=== PATIENT | male | born 1955 | race Caucasian/White ===

== ENCOUNTER → 2016-05-02 | Outpatient (CLI) | payer BC ==
--- NOTE | 2016-05-02 11:36 | PN ---
DATE OF SERVICE: 05/02/2016 A 60-year-old gentleman has been followed in the sleep center for treatment of obstructive sleep apnea-hypopnea syndrome. Recently patient received new CPAP unit. He continued to use equipment every night for the whole night. [place] Sleepiness Scale is normal at 4. Patient reported that sometimes he has whistling sound from the mask during breathing. But today, he claims his ( ) port in his mask and according to him probably whistling is disappearing. I checked his CPAP unit. CPAP pressure of 12 cm of water. Patient using equipment 28 out of 30 nights for more than 4 hours, great compliance. Average usage 7 hours. A leak up to 35 L per minute, which is borderline. Apnea-hypopnea index 3.0, which is in normal range. MEDICATIONS: Lovastatin and eye drops. During physical exam, the patient is in no distress. VITAL SIGNS: BP 137/79, HR 70, RR 16. Weight 250. Temperature 97.5. Oxygen saturation at room air 97%. HEENT: PERRLA, EOMI, Evaluation of the oropharynx showed tongue protrudes midline. NECK: Supple. No JVD, Thyroid is not palpable. LUNGS: Clear to percussion and to auscultation. Good air exchange. No wheezing or rhonchi. HEART: S1, S2 regular. No murmurs, gallops, or rubs. ABDOMEN: Soft and nontender. Bowel sounds are present. No organomegaly appreciated. SPRAY UNIT FEEDER: Awake, alert, and oriented x3. Cranial nerves 2 to 7 intact. There is no fasciculation or atrophy noted. No focal deficits observed. IMPRESSION: 1. Obstructive sleep apnea/hypopnea syndrome on control with CPAP at 12 cm of water. Patient demonstrated great compliance with treatment benefiting from treatment. 2. Obesity. Weight is about the same as about 6 months ago. 3. Hyperlipidemia. 4. Allergy. 5. Acid reflux. 6. Right knee problems. 7. High eye pressure. PLAN: 1. Patient will continue to use his CPAP equipment every night for the whole night. 2. Prescription for all necessary CPAP supplies. 3. We will consider to change mask to different style if necessary. Patient is using a full face mask. 4. Losing weight. 5. No driving if feeling any sleepiness. 6. Follow -up visit in one year or earlier if patient has any problems. Thank you very much for allowing me to participate in the management of your patient. Sincerely, Aldair Cheung MD, PhD, FAASM Diplomat of [place] Board of [employer] Medicine, Sleep Medicine Board by [place] [employer] Specialities [place] Board of Internal Medicine Electronics Warfare Technician of [facility] [place]
== END | disposition home or self-care (01) ==
LOC: SLEEP 10:05
PROVIDERS: ATTEND Internal Medicine
DX: G47.33 Obstructive sleep apnea (adult) (pediatric) (principal); E66.9 Obesity, unspecified; E78.5 Hyperlipidemia, unspecified; H57.9 Unspecified disorder of eye and adnexa; Z79.899 Other long term (current) drug therapy; Z99.89 Dependence on other enabling machines and devices

== ENCOUNTER 2017-03-18 08:47 | Emergency (ER) | payer BC ==
[2017-03-18] MEDS ORDERED: DIPH,PERTUS(ACELL)TETVAC-LF 0.5 ML VIAL IM ONE (09:15)
--- NOTE | 2017-03-18 09:18 | ED ---
General Adult HPI - General Chief complaint: Fall Stated complaint: Laceration around eye Time Seen by Provider: 03/18/17 09:08 Source: patient, RN notes reviewed, old records reviewed Mode of arrival: ambulatory Limitations: no limitations - History of Present Illness Initial comments: 61-year-old male presents with left eye laceration status post fall. Patient states he was sitting on the floor, stood and fell forward hitting his head and left eye on the edge of a coffee table. He had a laceration which was bleeding. Patient states this occurred at approximately 11 PM. He waited to be evaluated by his physician this morning secondary to high emergency department to Dr. Drake. Patient's primary care physician sent him in for further evaluation. There was continued bleeding, this has resolved. Patient is on certain of his last tetanus immunization. He is not currently on any blood thinners. He denies loss of consciousness with the fall. Denies any vision changes. Past medical history of hypercholesterolemia. Patient denies any other injuries. Denies current headache. No nausea vomiting. - Related Data Home Medications Medication Instructions Recorded Confirmed Brimonidine Tartrate/Timolol 1 drop BOTH EYES Q12HR 08/16/14 03/18/17 [Combigan 0.2%/0.5% Ophth Soln] Atorvastatin [Lipitor] 20 mg PO HS 03/18/17 03/18/17 Multivitamins, Thera [Multivitamin 1 tab PO DAILY 03/18/17 03/18/17 (formulary)] Turmeric Root Extract [Turmeric] 500 mg PO DAILY 03/18/17 03/18/17 Previous Rx's Medication Instructions Recorded Erythromycin Ophth Oint [Romycin 1 applic LEFT EYE QID #3.5 gm 03/18/17 Ophth Oint] Allergies Allergy/AdvReac Type Severity Reaction Status Date / Time hydrocodone bitartrate Allergy Nausea & Verified 03/18/17 09:06 [From Vicodin] Vomiting naproxen sodium [From Aleve] Allergy Rash/Hives, Verified 03/18/17 09:06 vomiting Review of Systems ROS Statement: Those systems with pertinent positive or pertinent negative responses have been documented in the HPI. ROS Other: All systems not noted in ROS Statement are negative. Past Medical History Past Medical History: Asthma, GERD/Reflux, Hyperlipidemia, Sleep Apnea/CPAP/ BIPAP Additional Past Medical History / Comment(s): glaucoma, frequent diarreha History of Any Multi-Drug Resistant Organisms: None Reported Past Surgical History: Orthopedic Surgery, Tonsillectomy Additional Past Surgical History / Comment(s): arthroscopy rt knee, deviated septum/rhinoplasty Past Anesthesia/Blood Transfusion Reactions: No Reported Reaction Past Psychological History: No Psychological Hx Reported Smoking Status: Former smoker - Past Family History Father Family Medical History: Cancer Additional Family Medical History / Comment(s): MALIGNANT MELANOMA Brother(s) Family Medical History: Cancer Additional Family Medical History / Comment(s): PANCREATIC Sister(s) Family Medical History: Cancer Additional Family Medical History / Comment(s): HODGKINS, LUNG General Exam Limitations: no limitations General appearance: alert, in no apparent distress Head exam: Present: atraumatic, normocephalic Eye exam: Present: PERRL, EOMI, periorbital swelling, other (Periorbital ecchymosis on the left, no bony tenderness, no photophobia) ENT exam: Present: normal exam, normal oropharynx Neck exam: Present: normal inspection. Absent: tenderness, meningismus Respiratory exam: Present: normal lung sounds bilaterally. Absent: respiratory distress Cardiovascular Exam: Present: regular rate, normal rhythm GI/Abdominal exam: Present: soft. Absent: distended, tenderness, guarding Extremities exam: Present: normal inspection, full ROM, normal capillary refill. Absent: pedal edema Neurological exam: Present: alert, oriented X3, CN II-XII intact, normal gait. Absent: motor sensory deficit Psychiatric exam: Present: normal affect, normal mood Skin exam: Present: warm, dry, intact. Absent: cyanosis, diaphoretic Course Vital Signs 03/18/17 08:55 Temperature 99.2 F Pulse Rate 100 Respiratory 18 Rate Blood Pressure 133/98 O2 Sat by Pulse 97 Oximetry Medical Decision Making - Medical Decision Making 61-year-old male with head injury and left eyelid laceration. Laceration is approximately 9 hours old. There is no bleeding. It is in good alignment, horizontal across the upper related, no involvement of the lid margin. No need for repair. There is no photophobia in that eye, no signs of traumatic iritis. No globe injury. 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 Wound is cleansed and antibiotic ointment applied. Patient will continue to apply antibiotic ointment, he is also prescribed erythromycin. He will follow- up with his primary care physician. Disposition Clinical Impression: Eyelid laceration, Closed head injury Disposition: HOME SELF-CARE Condition: Good Instructions: Facial Laceration (ED) Prescriptions: Erythromycin Ophth Oint [Romycin Ophth Oint] 1 applic LEFT EYE QID #3.5 gm Referrals: Modesto Ramirez DO [Primary Care Provider] - 1-2 days Time of Disposition: 10:07
--- NOTE | 2017-03-18 09:53 | CT ---
EXAMINATION TYPE: CT brain josiah cota con DATE OF EXAM: 03/18/2017 COMPARISON: NONE HISTORY: Left orbital injury with laceration and visual disturbance after fall. Head and neck pain. CT DLP: 1800.8 mGycm. Automated Exposure Control for Dose Reduction was Utilized. TECHNIQUE: CT scan of the head and cervical spine are performed without contrast. FINDINGS: There is no acute intracranial hemorrhage, mass effect, or midline shift identified. The ventricles and sulci are symmetrically prominent compatible with age-related volume loss. There is m oderate ethmoid mucosal thickening left maxillary sinus mucosal retention cyst measuring 1.8 cm. Mild left maxillary mucosal thickening and sphenoid mucosal thickening are also seen. Frontal sinuses are mildly hypoplastic but well aerated. Mastoid air cells and right maxillary sinus are well aerated. C alvarium is intact. Right frontal bone sclerotic lesion measuring 3 mm likely represents a small oste zaid on bone island. There is preseptal left periorbital soft tissue swelling. Globes remain rounded and lenses are in dolores ce. No post septal soft tissue swelling. Extraocular muscles are symmetric. Cervical spine is visualized in its entirety from C1 through upper thoracic levels and demonstrates s atisfactory alignment without evidence of acute fracture or dislocation. Prevertebral soft tissue ap pears within normal limits. Multilevel moderate degenerative changes of the cervical spine are demons trated as anterior osteophytes, endplate sclerosis, facet arthropathy, uncovertebral hypertrophy and intervertebral disc space narrowing. Small posterior disc ossify complexes are also seen at C5-C6 and C6-C7 creating mild spinal canal stenosis at these levels. The C1-C2 articulation is unremarkable. There is straightening of the usual cervical lordosis. A 4 mm hypoattenuated right thyroid nodule is noted. Left apical pleural parenchymal scarring is grea ter than on the right. IMPRESSION: 1. There is no acute fracture or dislocation evident in the cervical spine. 2. No acute intracranial hemorrhage, mass effect, or midline shift is seen. 3. Left preseptal periorbital soft tissue swelling. No evidence of globe rupture, lens displacement o r orbital fracture. 4. Moderate multilevel degenerative disc disease resulting in mild spinal canal stenosis at C5-C6 and C6-C7.
[2017-03-18 10:22] VITALS: BP 140/80; PULSE 70; RESP 16; TEMP 98
== END 2017-03-18 10:20 | disposition home or self-care (01) ==
LOC: EC 08:47
DX: S01.112A Laceration without foreign body of left eyelid and periocular area, initial encounter (principal); E78.5 Hyperlipidemia, unspecified; G47.30 Sleep apnea, unspecified; Z99.89 Dependence on other enabling machines and devices; Z86.69 Personal history of other diseases of the nervous system and sense organs; Z87.891 Personal history of nicotine dependence; Z79.899 Other long term (current) drug therapy; Z88.5 Allergy status to narcotic agent; Z88.6 Allergy status to analgesic agent; Z23 Encounter for immunization; W01.190A Fall on same level from slipping, tripping and stumbling with subsequent striking against furniture, initial encounter
CPT/HCPCS: 70450; 72125; 90471; 90715; 99284

== ENCOUNTER → 2017-05-08 | Outpatient (CLI) | payer BC ==
--- NOTE | 2017-05-08 16:55 | PN ---
PROGRESS NOTE DATE OF SERVICE: 05/08/2017 This patient is a 61-year-old gentleman who has been followed in the sleep center for treatment of obstructive sleep apnea-hypopnea syndrome. Last time I saw the patient was one year ago. For this year, patient continued to use his CPAP equipment every night without significant problems. [place] Sleepiness Scale today is 4. He was told once about episodes of snoring; otherwise everything is normal. I checked his CPAP unit. CPAP pressure is 12 cm of water. Usage is 100% of the time for more than 4 hours. Average usage 8.1 hours. Leak is 19 L/minute, which is acceptable. Apnea-hypopnea index for the last month is 5.7, which is within acceptable range. MEDICATIONS: 1. Lovastatin. 2. Eye drops. PHYSICAL EXAMINATION: GENERAL A pleasant gentleman without distress. VITAL SIGNS: BP 138/79, HR 70, RR 16, height 5 feet 10 inches, weight 264, BMI 37.8, temperature 98.6, oxygen saturation at room air 96%. HEENT: PERRLA, EOMI. Evaluation of oropharynx showed tongue protrudes midline; extremely low position of soft palate. NECK: Supple. No JVD. Thyroid is not palpable. LUNGS: Clear to percussion and to auscultation. Good air exchange. No wheezing or rhonchi. HEART: S1, S2 regular. No murmurs, gallops or rubs. ABDOMEN: Obese. EXTREMITIES : No clubbing or cyanosis. CORE MACHINE TENDER: Awake, alert, and oriented X3. Cranial nerves 2 to 7 intact. There is no fasciculation or atrophy. noted. No focal deficits observed. IMPRESSION: 1. Obstructive sleep apnea-hypopnea syndrome. Patient demonstrated 100% compliance with treatment, benefitting from treatment. 2. Obesity. Patient's weight increased by about 14 pounds since previous visit. At present his weight is 264 pounds. 3. Hyperlipidemia. 4. History of allergies. 5. History of acid reflux. 6. Right knee problem. 7. Increased eye pressure. PLAN: 1. Continue treatment with CPAP every night for the whole night. 2. Losing weight. 3. Sleep hygiene with regular time in bed for at least 8 hours. 4. No driving if feeling any sleepiness. 5. Prescription for all necessary CPAP supplies, including mask, tube, filters. 6. Follow-up visit in one year or earlier if patient has any problems. Thank you very much for allowing me to participate in the management of your patient. Sincerely, Aldair Cheung MD, PhD, FAASM Diplomat of [place] Board of Medical Specialties [place] Board of Internal Medicine Precipitate Washer of [facility] [place] MMODL / EV: [id number] /
== END | disposition home or self-care (01) ==
LOC: SLEEP 13:42
PROVIDERS: ATTEND Internal Medicine
DX: G47.33 Obstructive sleep apnea (adult) (pediatric) (principal); E66.9 Obesity, unspecified; E78.5 Hyperlipidemia, unspecified; M25.861 Other specified joint disorders, right knee; H57.8 Other specified disorders of eye and adnexa; Z87.19 Personal history of other diseases of the digestive system; Z91.09 Other allergy status, other than to drugs and biological substances; Z79.899 Other long term (current) drug therapy; Z99.89 Dependence on other enabling machines and devices

== ENCOUNTER → 2018-05-14 | Outpatient (CLI) | payer BC ==
--- NOTE | 2018-05-14 15:46 | PN ---
PROGRESS NOTE DATE OF SERVICE: 05/14/2018 This patient is a 62-year-old gentleman who has been followed in the sleep center for treatment of obstructive sleep apnea-hypopnea syndrome. The patient successfully continues to use his CPAP equipment. Recently he received his new CPAP unit. Today is his first visit since he received his new CPAP machine. [place] Sleepiness Scale today is 2. I checked his CPAP unit. Usage is 100% of the time for more than 4 hours. Average usage is 8.2 hours. CPAP pressure is 12 cm of water. Leak is 30 L/minute which is borderline. Apnea-hypopnea index is only 2.7, which is totally normal. His medications are lovastatin eyedrops for increased eye pressure. PHYSICAL EXAMINATION: GENERAL: A pleasant patient in no distress. VITAL SIGNS: BP 144/76, HR 74, RR 16, height 5 feet 10 inches, weight 254 pounds. Body mass index 36, temperature 98.6, oxygen saturation at room air 94%. HEENT: PERRLA, EOMI. Evaluation of oropharynx showed tongue protrudes midline. Extremely low position of soft palate. Mallampati IV. NECK: Supple. No JVD. Thyroid is not palpable. LUNGS: Clear to percussion and to auscultation. Good air exchange. No wheezing or rhonchi. HEART: S1, S2 regular. No murmurs, gallops or rubs. ABDOMEN: Obese. EXTREMITIES: No clubbing or cyanosis. LANDSCAPE CREW MEMBER: Awake, alert, and oriented X3. Cranial nerves 2 to 7 intact. There is no fasciculation or atrophy. noted. No focal deficits observed. IMPRESSION: 1. Obstructive sleep apnea-hypopnea syndrome, 100% compliance with treatment. Patient is benefitting from treatment. 2. Obesity. 3. Hyperlipidemia. 4. History of allergies. 5. History of acid reflux. 6. Right knee problems. 7. Increased eye pressure. PLAN: 1. Patient will continue to use CPAP equipment every night. 2. We will maintain all necessary prescriptions for CPAP supplies, including filters, tubes, mask. 3. Losing weight. 4. No driving if feeling any sleepiness. 5. Follow-up visit in one year, or earlier if patient has any problems. Thank you very much for allowing me to participate in the management of your patient. Sincerely, Aldair Cheung MD, PhD, FAASM Diplomat of [place] Board of Medical Specialties [place] Board of Internal Medicine Snow Ranger of [facility] [place] [email or web address] / LINHN: [id number] /
== END ==
LOC: SLEEP 14:20
PROVIDERS: ATTEND Internal Medicine
DX: G47.33 Obstructive sleep apnea (adult) (pediatric) (principal); E66.9 Obesity, unspecified; E78.5 Hyperlipidemia, unspecified; K21.9 Gastro-esophageal reflux disease without esophagitis; T78.40XA Allergy, unspecified, initial encounter; M25.561 Pain in right knee; H40.059 Ocular hypertension, unspecified eye; Z99.89 Dependence on other enabling machines and devices; Z68.36 Body mass index [BMI] 36.0-36.9, adult

== ENCOUNTER → 2019-04-22 | Outpatient (CLI) | payer BC ==
--- NOTE | 2019-04-22 11:26 | SFUN ---
SLEEP CENTER FOLLOW UP NOTE DATE OF SERVICE: 04/22/2019 This is a 63-year-old gentleman has been followed in sleep center for treatment of obstructive sleep apnea-hypopnea syndrome. The patient continued to use CPAP equipment every night for the whole night, but recently started to wake up from sleep while using his CPAP equipment. [place] Sleepiness Scale today is 6. I checked his CPAP unit. CPAP pressure is 12 cm of water. Usage is 29 out of 30 nights for more than 4 hours with average usage 7.6 hours, he showed great compliance. Leak 14 L/minute, which is acceptable. Apnea-hypopnea index for the last month 8.7 for the last night, 11.9, which is definitely above ideal numbers and last year patient apnea- hypopnea index was 2.7. Since last year, patient increased his weight again on around 7 pounds. MEDICATIONS: eyedrops for the increased eye pressure. PHYSICAL EXAMINATION: During physical exam, patient in no distress. VITAL SIGNS: BP 162/87, HR 78, RR 12, height 5 feet 11 inches, weight 261.0, body mass index 36.2, temperature 97.6, oxygen saturation at room air 97%. HEENT: PERRLA, EOMI. Oropharynx extremely low soft palate, Mallampati 4. NECK: Supple, no JVD. Thyroid is not palpable. LUNGS: Clear to percussion and to auscultation. Good air exchange. No wheezing or rhonchi. HEART: S1, S2 regular. No murmurs, gallops, or rubs. ABDOMEN: Obese. EXTREMITIES: No clubbing or cyanosis. CYBER SECURITY ENGINEER: Awake, alert, and oriented X3. Cranial nerves 2 to 7 intact. There is no fasciculation or atrophy. noted. No focal deficits observed. IMPRESSION: 1. Obstructive sleep apnea-hypopnea syndrome. The patient demonstrated 100% compliance with treatment benefitting from treatment, but recently started to wake up from sleep while using his CPAP equipment. 2. Obesity. Patient increased weight around 7 pounds. 3. Hyperlipidemia. 4. History of allergies. 5. History of acid reflux. 6. Right knee problems. 7. Increased eye pressure. PLAN: 1. I will change the regimen in the machine to automatic with a maximum pressure of 15. 2. Follow-up visit in 3 or 4 months to re-evaluate patient quality of sleep. 3. Losing weight. 4. Sleep hygiene with regular time in bed for at least 7-1/2 to 8 hours. 5. No driving if feeling sleepiness. 6. We will maintain all necessary prescriptions for full mask. The patient is Simplus and heated tube and filters. Thank you very much for allowing me to participate in management of your patient. Sincerely, Aldair Cheung MD, PhD, FAASM Diplomat of [place] Board of Medical Specialties [place] Board of Internal Medicine Copyist of [facility] [place] MMODL / IJN: [id number] /
== END | disposition home or self-care (01) ==
LOC: SLEEP 10:28
PROVIDERS: ATTEND Internal Medicine
DX: G47.33 Obstructive sleep apnea (adult) (pediatric) (principal); E66.9 Obesity, unspecified; E78.5 Hyperlipidemia, unspecified; R93.89 Abnormal findings on diagnostic imaging of other specified body structures; Z99.89 Dependence on other enabling machines and devices; Z87.19 Personal history of other diseases of the digestive system; Z91.09 Other allergy status, other than to drugs and biological substances; Z87.39 Personal history of other diseases of the musculoskeletal system and connective tissue; Z79.899 Other long term (current) drug therapy; Z68.36 Body mass index [BMI] 36.0-36.9, adult

== ENCOUNTER → 2019-07-29 | Outpatient (CLI) | payer BC ==
--- NOTE | 2019-07-29 19:31 | SFUN ---
SLEEP CENTER FOLLOW UP NOTE This patient is a 63-year-old gentleman who has been followed in Sleep Center for treatment of obstructive sleep apnea-hypopnea syndrome. The patient continues to use CPAP equipment every night for the whole night. No snoring with the machine. [place] Sleepiness Scale today is 3, which is normal. I checked his CPAP unit; automatic regimen 5-16. Average pressure 15.6, average apnea- hypopnea index for the last month 3.3, usage 30/30 nights for more than 4 hours with average usage 7.1 hours per night. The patient is using an AirFit F20 medium- sized mask. PHYSICAL EXAMINATION: VITAL SIGNS: BP 169/84, HR 72, RR 16, height 5 feet 11 inches, weight 263, temperature 98.0, oxygen saturation at room air 95%. HEENT: PERRLA, EOMI. Evaluation of oropharynx showed tongue protrudes midline. Extremely low position of soft palate. Mallampati IV. NECK: Supple. No JVD. Thyroid is not palpable. LUNGS: Clear to percussion and to auscultation. Good air exchange. No wheezing or rhonchi. HEART: S1, S2 regular. No murmurs, gallops or rubs. ABDOMEN: Obese. EXTREMITIES: No clubbing or cyanosis. SLOT MANAGER: Awake, alert, and oriented X3. Cranial nerves 2 to 7 intact. There is no fasciculation or atrophy. noted. No focal deficits observed. IMPRESSION: 1. Obstructive sleep apnea-hypopnea syndrome. Patient demonstrated great compliance with treatment, benefitting from treatment. 2. Obesity. 3. Hyperlipidemia. 4. History of allergies. 5. History of acid reflux. 6. Right knee problems. 7. Increased eye pressure. PLAN: 1. Prescription was written for CPAP supplies. 2. Losing weight. 3. Sleep hygiene with regular time in bed for at least 7-1/2 hours. 4. No driving if feeling any sleepiness. 5. Follow-up visit in 6 months. Thank you very much for allowing me to participate in the management of your patient. Sincerely, Aldair Cheung MD, PhD, FAASM Diplomat of [place] Board of Medical Specialties [place] Board of Internal Medicine Pole Peeler of [facility] [place] MMODL / IJN: [id number] / [facility]
== END | disposition home or self-care (01) ==
LOC: SLEEP 10:47
PROVIDERS: ATTEND Internal Medicine
DX: G47.33 Obstructive sleep apnea (adult) (pediatric) (principal); E66.9 Obesity, unspecified; E78.5 Hyperlipidemia, unspecified; H57.89 Other specified disorders of eye and adnexa; R93.89 Abnormal findings on diagnostic imaging of other specified body structures; Z91.09 Other allergy status, other than to drugs and biological substances; Z87.19 Personal history of other diseases of the digestive system; Z99.89 Dependence on other enabling machines and devices

== ENCOUNTER → 2020-08-30 | Outpatient (CLI) | payer BC ==
--- NOTE | 2020-08-30 23:37 | SFUN ---
SLEEP CENTER FOLLOW UP NOTE DATE OF SERVICE: 08/30/2020 This is a 64-year-old gentleman has been followed in Sleep Center for treatment of obstructive sleep apnea-hypopnea syndrome. Patient continued to use his CPAP equipment every night, complaining that his head gear loose. [place] Sleepiness Scale today is 4, which is normal. I checked his CPAP unit. It is in automatic regimen. Range of the pressure 5-16, average pressure 14.4, usage 30/30 nights for more than 4 hours with average usage 7.3 hours per night. Leak is 24 L/minute, which is borderline. Apnea-hypopnea index is a 1.8, which is totally normal. MEDICATIONS: Atorvastatin once a day, eyedrops for the increased eye pressure. PHYSICAL EXAMINATION: GENERAL: Patient in no distress. BP 135/77, HR 85, RR 18, height 5 feet 10 inches, weight 245.6, body mass index 35.1. Oxygen saturation at room air 95%, oropharynx extremely low position of soft palate. Mallampati IV. ABDOMEN: Obese. LUNGS: Good air exchange. No wheezing or rhonchi. HEENT: PERRLA, EOMI, evaluation of oropharynx showed tongue protrudes midline. NECK: Supple, no JVD. Thyroid is not palpable. HEART: S1, S2 regular. No murmurs, gallops, or rubs. EXTREMITIES: No clubbing or cyanosis. CITY AUDITOR: Awake, alert, and oriented X3. Cranial nerves 2 to 7 intact. There is no fasciculation or atrophy. noted. No focal deficits observed. IMPRESSION: 1. Obstructive sleep apnea-hypopnea syndrome. Patient demonstrated 100% compliance with treatment, benefitting from treatment. 2. History of allergies. 3. Hyperlipidemia. 4. History of acid reflux. 5. Increased eye pressure. 6. Right knee problems. PLAN: 1. Polysomnography for evaluation of patient's breathing during sleep. 2. CPAP/BiPAP titration if sleep study confirms obstructive sleep apnea-hypopnea syndrome. 3. Preferable position during sleep on the side. 4. No driving if patient feels any sleepiness. 5. I will see patient for follow up visit to explain results of testing and following plan. 6. Patient documentation: 30 minutes. Thank you very much for allowing me to participate in management of the patient's care. Sincerely, Aldair Cheung MD, PhD, FAASM Diplomat of [place] [employer] Specialties [place] Board of Internal Medicine Ic Designer [employer] Arrays [facility] [place] MMODL / LINHN: [id number] /
== END ==
LOC: SLEEP 14:29
PROVIDERS: ATTEND Internal Medicine
DX: G47.33 Obstructive sleep apnea (adult) (pediatric) (principal); E78.5 Hyperlipidemia, unspecified; Z87.892 Personal history of anaphylaxis; Z87.19 Personal history of other diseases of the digestive system; H40.059 Ocular hypertension, unspecified eye; M25.869 Other specified joint disorders, unspecified knee; Z99.89 Dependence on other enabling machines and devices

== ENCOUNTER → 2021-08-23 | Outpatient (CLI) | payer MEDICARE ==
--- NOTE | 2021-08-23 11:25 | P.PN ---
Subjective DATE: 08/23/2021 FOLLOW UP VISIT. Patient with obstructive sleep apnea hypopnea syndrome return to sleep center for follow-up visit. Patient is using PAP equipment every night for the whole night, getting PAP supplies in time. The patient does not have significant problems with the mask, PAP unit and humidification. [place] sleepiness scale is 3, which is perfect. I checked PAP unit. PAP unit pressure from 516, average 14.2 cm H2O. Usage is 98 % for more then 4 hours, average and 1.3 hours per night. Leak is 28 l/m, which is in acceptable range. Apnea Hypopnea Index is 2, which is normal. MEDICATIONS:1. Atorvastatin once a day 2. Eyedrops During physical exam: GENERAL: A pleasant patient without any distress. VITAL SIGNS: BP 158/90, HR 80, RR 16 , weight 246.2, height 5 foot 10 inches, body mass index 35.2, temperature 97.6, oxygen saturation at room air 95% . HEENT: PERRLA, EOMI.low position of soft palate, Mallapati for . NECK: Supple. No JVD. LUNGS: Clear to percussion and to auscultation. Good air exchange. No wheezing or rhonchi. HEART: S1, S2 regular. ABDOMEN: Soft and nontender. Slightly obese EXTREMITIES: No clubbing or cyanosis. TRAVELER CHANGER: Awake, alert, and oriented x3. No focal deficit. Impressions: 1. Obstructive sleep apnea-hypopnea syndrome. Patient demonstrated great compliance with treatment, benefiting from treatment. 2. ALLERGY. 3. Obesity. 4. History of acid reflux. 5. Increased eye pressure. 6. History of right knee problems. Plan: 1. Continue using PAP equipment every night for the whole night. 2. To change air filter at least 1-2 times per month. 3. PAP unit should stay lower then position of the head. 4. Advised patient to remove all remaining water from humidifier canister daily and make it dry after each usage. Refill canister with fresh distilled water before each usage. 5. Sleep hygiene with regular time in bed for at least 8 hours. 6. Precautions related to driving. No driving if feel any sleepiness. 7. I will maintain prescription for PAP supplies including mask, tube, filters. 8. Follow up visit in 12 months or earlier if patient has any problems. 9. Watching weight. Thank you very much for allowing me to participate in the management of your patient. Aldair Cheung MD, PhD, FAASM. Diplomat of [place] [employer], Sleep Medicine Board by [place] Hvac Residential Service Technician of [facility] [place]
== END ==
LOC: SLEEP 10:53
PROVIDERS: ATTEND Internal Medicine
DX: G47.33 Obstructive sleep apnea (adult) (pediatric) (principal); Z99.89 Dependence on other enabling machines and devices; T78.40XA Allergy, unspecified, initial encounter; E66.9 Obesity, unspecified; Z87.39 Personal history of other diseases of the musculoskeletal system and connective tissue; H40.059 Ocular hypertension, unspecified eye; Z68.35 Body mass index [BMI] 35.0-35.9, adult; Z88.5 Allergy status to narcotic agent; Z88.6 Allergy status to analgesic agent; Z87.891 Personal history of nicotine dependence
CPT/HCPCS: 99212

== ENCOUNTER → 2022-08-14 | Outpatient (CLI) | payer MEDICARE ==
--- NOTE | 2022-08-14 14:56 | CTL ---
EXAMINATION TYPE: CT Low Dose Lung DATE OF EXAM ORDERED: 08/14/2022 HISTORY: Z12.2. Lung cancer screening CT DLP: [address] CTDI: 2.56 mGy Automated exposure control for dose reduction was used. SCREENING VISIT: First screening visit COMPARISON: None TECHNIQUE: Low dose computed tomography scan was performed through the chest at 1 mm thick sections a nd reconstructed images in multiple planes at 1 mm and [address] DIAGNOSTIC QUALITY: Satisfactory FINDINGS: LUNG NODULES: Left apical 2 mm pulmonary nodule (series 7, image 33). Right upper lobe 4 mm pulmonary nodule (serie s 4, image 123). LUNGS: COPD: Severity: None Fibrosis: Severity: None Lymph nodes: None Other findings: Lingular and middle lobe linear scarring. RIGHT PLEURAL SPACE: Effusion: None Calcification: None Thickening: None Pneumothorax: None LEFT PLEURAL SPACE: Effusion: None Calcification: None Thickening: None Pneumothorax: None HEART: Heart Size: Normal Coronary Calcification: None Pericardial Effusion: None OTHER FINDINGS: Upper abdomen: None Bony thorax: No acute osseous abnormality. Mild multilevel degenerative disc disease of the thoracic spine. Supraclavicular region: None Other: None IMPRESSION: Few pulmonary nodules measuring [address] LUNG RAD AND CT CHEST RECOMMENDATION: Lung-Rad 2 Benign Appearance or Behavior: Continue annual sc reening with LDCT in 12 months. S Modifier (other clinically significant findings): None
== END | disposition home or self-care (01) ==
LOC: RADCTMAIN 14:21
PROVIDERS: ATTEND Family Medicine
DX: Z12.2 Encounter for screening for malignant neoplasm of respiratory organs (principal); M51.34 Other intervertebral disc degeneration, thoracic region; R91.8 Other nonspecific abnormal finding of lung field; F17.210 Nicotine dependence, cigarettes, uncomplicated
CPT/HCPCS: 71271

== ENCOUNTER → 2022-08-22 | Outpatient (CLI) | payer MEDICARE ==
--- NOTE | 2022-08-22 10:55 | P.PN ---
Subjective DATE: 08/22/2022 FOLLOW UP VISIT. Patient with obstructive sleep apnea hypopnea syndrome return to sleep center for follow-up visit. Information from previous visit have been reviewed. Patient is using PAP equipment every night for the whole night, getting PAP supplies in time. The patient does not have significant problems with the mask, PAP unit and humidification. [place] sleepiness scale is 3. I checked information from PAP unit. PAP unit pressure 5-16, average 13.5 cm H2O. Usage is 100 % for more then 4 hours, average 7 hours per night. Leak is 23.6 l/m, which is in acceptable range. Apnea Hypopnea Index is 1.5, which is normal. MEDICATIONS:1. Atorvastatin 2. Eyedrops for increased eye pressure During physical exam: GENERAL: A pleasant patient without any distress. VITAL SIGNS: BP 119/70, HR 86, RR 16 , weight 247.8, temperature 98.3, oxygen saturation at room air 96 % . HEENT: PERRLA, EOMI.low position of soft palate, Mallapati 4 . NECK: Supple. No JVD. LUNGS: Clear to percussion and to auscultation. Good air exchange. No wheezing or rhonchi. HEART: S1, S2 regular. ABDOMEN: Soft and nontender. Slightly obese EXTREMITIES: No clubbing or cyanosis. PERSONNEL ASSOCIATE: Awake, alert, and oriented x3. No focal deficit. Impressions: 1. Obstructive sleep apnea-hypopnea syndrome. Patient demonstrated great compliance with treatment, benefiting from treatment. 2. Increased eye pressure. 3. Hyperlipidemia. 4. Obesity. 5. Acid reflux. 6. History of right knee problems. Plan: 1. Continue using PAP equipment every night for the whole night. 2. To change air filter at least 1-2 times per month. 3. PAP unit should stay lower then position of the head. 4. Advised patient to remove all remaining water from humidifier canister daily and make it dry after each usage. Refill canister with fresh distilled water before each usage. 5. Sleep hygiene with regular time in bed for at least 8 hours. 6. Precautions related to driving. No driving if feel any sleepiness. 7. I will maintain prescription for PAP supplies including mask, tube, filters. 8.Watching and losing weight. 9. Follow up visit in 6 months or earlier if patient has any problems. Thank you very much for allowing me to participate in the management of your patient. Aldair Cheung MD, PhD, FAASM. Diplomat of [place], Sleep Medicine Board by [employer] Assembler Mechanical Ordnance of [facility] [place]
== END ==
LOC: 3 N SLEEP 09:47
PROVIDERS: ATTEND Internal Medicine
DX: G47.33 Obstructive sleep apnea (adult) (pediatric) (principal); E78.5 Hyperlipidemia, unspecified; E66.9 Obesity, unspecified; K21.9 Gastro-esophageal reflux disease without esophagitis; M25.861 Other specified joint disorders, right knee; H40.059 Ocular hypertension, unspecified eye; Z99.89 Dependence on other enabling machines and devices; Z88.5 Allergy status to narcotic agent; Z88.8 Allergy status to other drugs, medicaments and biological substances; Z87.891 Personal history of nicotine dependence
CPT/HCPCS: 99212

== ENCOUNTER → 2023-02-27 | Outpatient (CLI) | payer MEDICARE ==
--- NOTE | 2023-02-27 12:36 | P.PN ---
Subjective DATE: 02/27/2023 FOLLOW UP VISIT. Patient with obstructive sleep apnea hypopnea syndrome return to sleep center for follow-up visit. Information from previous visit have been reviewed. Patient is using PAP equipment every night for the whole night, getting PAP supplies in time. The patient does not have significant problems with the mask, PAP unit and humidification. [place] sleepiness scale is 3, which is normal. I checked information from PAP unit and explaining to the patient. PAP unit pressure 5-16, average 13.9 cm H2O. Usage is 100 % for more then 4 hours, average 7.8 hours per night. Leak is 20.1 l/m, which is in acceptable range. Apnea Hypopnea Index is 1.2, which is normal. MEDICATIONS:1. Atorvastatin 2. Eyedrops During physical exam: GENERAL: A pleasant patient without any distress. VITAL SIGNS: BP 163/83, HR 81, RR 12, weight 270.2, temperature 98.2, oxygen saturation at room air 96 % . HEENT: PERRLA, EOMI.low position of soft palate, Mallapati 4 . NECK: Supple. No JVD. LUNGS: Clear to percussion and to auscultation. Good air exchange. No wheezing or rhonchi. HEART: S1, S2 regular. ABDOMEN: Soft and nontender. Obese EXTREMITIES: No clubbing or cyanosis. GAS LEAK INSPECTOR: Awake, alert, and oriented x3. No focal deficit. Impressions: 1. Obstructive sleep apnea-hypopnea syndrome. Patient demonstrated great compliance with treatment, benefiting from treatment. 2. Obesity, BMI 38.7, patient increased weight and 23 pounds comparing with previous visit. 3. Increased eye pressure. 4. Acid reflux. 5. Hyperlipidemia. 6. History of right knee problems. Plan: 1. Continue using PAP equipment every night for the whole night. 2. To change air filter at least 1-2 times per month. 3. PAP unit should stay lower then position of the head. 4. Advised patient to remove all remaining water from humidifier canister daily and make it dry after each usage. Refill canister with fresh distilled water before each usage. 5. Sleep hygiene with regular time in bed for at least 8 hours. 6. Precautions related to driving. No driving if feel any sleepiness. 7. I will maintain prescription for PAP supplies including mask, tube, filters. 8. Follow up visit in 6 months or earlier if patient has any problems. 9. Watching and losing weight. Thank you very much for allowing me to participate in the management of your patient. Aldair Cheung MD, PhD, FAASM. Diplomat of [place] [employer], Sleep Medicine Board by [place] [employer] Paper Sealer of [facility] [place]
== END ==
LOC: 3 N SLEEP 10:40
PROVIDERS: ATTEND Internal Medicine
DX: G47.33 Obstructive sleep apnea (adult) (pediatric) (principal); E66.9 Obesity, unspecified; E78.5 Hyperlipidemia, unspecified; K21.9 Gastro-esophageal reflux disease without esophagitis; H40.059 Ocular hypertension, unspecified eye; Z68.38 Body mass index [BMI] 38.0-38.9, adult; Z99.89 Dependence on other enabling machines and devices; Z88.5 Allergy status to narcotic agent; Z88.8 Allergy status to other drugs, medicaments and biological substances; Z87.891 Personal history of nicotine dependence
CPT/HCPCS: 99212

== ENCOUNTER → 2023-09-26 | Outpatient (CLI) | payer MEDICARE ==
--- NOTE | 2023-10-25 20:24 | CTL ---
Site ID [facility] Patient Miguel Ángel Rios J ID [id number] Age/Gender: 68Y, M Order # N/A Procedure CT LOW DOSE LUNG CANCER SCREENING Date 09/26/2023 10:31:00 AM EXAMINATION TYPE: CT Low Dose Lung DATE OF EXAM ORDERED: 10/09/2023 HISTORY: Personal history of nicotine dependence, quit smoking in May 2023.. Lung cancer screening CT DLP: 162.[address] CTDI: 4.30 mGy Automated exposure control for dose reduction was used. SCREENING VISIT: Follow-up COMPARISON: CT Low Dose Lung cages screening 08/14/2022 TECHNIQUE: Low dose computed tomography scan was performed through the chest at 1 mm thick sections a nd reconstructed images in multiple planes at 1 mm and [address] DIAGNOSTIC QUALITY: Satisfactory FINDINGS: Nodules: Stable left apical 3.6 mm pulmonary nodule (series 7, image 33). Stable right upper lobe for 4.8 mm s olid pulmonary nodule (series 4, image 123). No new or enlarging pulmonary nodules. LUNGS: COPD: Severity: None Fibrosis: Severity: None Lymph nodes: None Other findings: Lingula and middle lobe linear scarring redemonstrated. RIGHT PLEURAL SPACE: Effusion: None Calcification: None Thickening: None Pneumothorax: None LEFT PLEURAL SPACE: Effusion: None Calcification: None Thickening: None Pneumothorax: None HEART: Heart Size: Normal size, aortic valvular calcifications. Coronary Calcification: None Pericardial Effusion: None OTHER FINDINGS: Upper abdomen: Circumferential thickening of the distal esophagus which may related to esophagitis/ga stroesophageal reflux. Bony thorax: No acute osseous abnormality. Mild multilevel degenerative disc disease of the thoracic spine with DISH. Supraclavicular region: None Other: None IMPRESSION: Stable pulmonary nodules measuring less than 5 mm. No new or enlarging pulmonary nodules. CT LUNG RAD AND CT CHEST RECOMMENDATION: Lung-Rad 2 Benign Appearance or Behavior: Continue annual sc reening with LDCT in 12 months. S Modifier (other clinically significant findings): None
== END | disposition home or self-care (01) ==
LOC: RADCTMAIN 10:14
PROVIDERS: ATTEND Family Medicine
DX: Z87.891 Personal history of nicotine dependence (principal); R91.8 Other nonspecific abnormal finding of lung field
CPT/HCPCS: 71271

== ENCOUNTER → 2024-02-26 | Outpatient (CLI) | payer MEDICARE ==
[2024-02-26 10:45] VITALS: BP 112/69; PULSE 83; RESP 18; TEMP 98.2
--- NOTE | 2024-02-26 11:10 | P.PROGSL ---
Subjective DATE: 02/26/2024 FOLLOW UP VISIT. Patient with obstructive sleep apnea hypopnea syndrome return to sleep center for follow-up visit. Information from previous visit have been reviewed. Patient is using PAP equipment every night for the whole night, getting PAP supplies in time. The patient does not have significant problems with the mask, PAP unit and humidification. [place] sleepiness scale is 2. I checked information from PAP unit. PAP unit pressure 5-16, average 12.6 cm H2O. Usage is 100% for more then 4 hours, average 8 hours per night. Leak is 17 l/m, which is in acceptable range. Apnea Hypopnea Index is 0.7, which is normal. MEDICATIONS: Atorvastatin, lisinopril, famotidine, latanoprost, timolol. During physical exam: GENERAL: A pleasant patient without any distress. VITAL SIGNS: Please see below, weight is 243.4 lbs. HEENT: PERRLA, EOMI.low position of soft palate, Mallapati 4 . NECK: Supple. No JVD. LUNGS: Clear to percussion and to auscultation. Good air exchange. No wheezing or rhonchi. HEART: S1, S2 regular. ABDOMEN: Soft and nontender.[] EXTREMITIES: No clubbing or cyanosis. REGULATORY PRODUCT MANAGER: Awake, alert, and oriented x3. No focal deficit. Impressions: 1. Obstructive sleep apnea-hypopnea syndrome. Patient demonstrated great compliance with treatment, benefiting from treatment. 2. Obesity, BMI 35.0, patient lost 27 pounds comparing with previous visit. 3. Increased eye pressure. 4. Acid reflux. 5. Hyperlipidemia. 6. History of right knee problems. I explained to the patient in details and he changed parameters of heated humidifier and temperature in the tube by himself. Temperature in humidifier was increased to the level 5 and temperature in the tube was decreased from 81 degree to 76 degree. Plan: 1. Continue using PAP equipment every night for the whole night. 2. Sleep hygiene with regular time in bed for at least 7.5-8 hours 3. PAP unit should stay lower then position of the head. 4. Advised patient to remove all remaining water from humidifier canister daily and make it dry after each usage. Refill canister with fresh distilled water before each usage. 5. Watching weight. 6. Precautions related to driving. No driving if feel any sleepiness. 7. I will maintain prescription for PAP supplies including mask, tube, filters. 8. Follow up visit in 8 months or earlier if patient has any problems. Thank you very much for allowing me to participate in the management of your patient. Aldair Cheung MD, PhD, FAASM. Diplomat of [place] [employer] Sleep Medicine, Sleep Medicine Board by [employer] Insurance And Financial Services Agent of [facility] [place] Objective - Vital Signs Vital Signs: Vital Signs Temp 98.2 F 02/26/24 10:40 Pulse 83 02/26/24 10:40 Resp 18 02/26/24 10:40 BP 112/69 02/26/24 10:40 Pulse Ox 97 02/26/24 10:40 FiO2 Intake & Output 02/25/24 02/26/24 02/26/24 18:59 06:59 18:59 Weight 110.336 kg Home Medications: Home Medications Medication Instructions Recorded Confirmed Type Brimonidine Tartrate/Timolol 1 drop BOTH EYES Q12HR 08/16/14 03/18/17 History [Combigan 0.2%/0.5% Ophth Soln] Atorvastatin [Lipitor] 20 mg PO HS 03/18/17 03/18/17 History Erythromycin Ophth Oint [Romycin 1 applic LEFT EYE QID #3.5 gm 03/18/17 Rx Ophth Oint] Multivitamins, Thera [Multivitamin 1 tab PO DAILY 03/18/17 03/18/17 History (formulary)] Turmeric Root Extract [Turmeric] 500 mg PO DAILY 03/18/17 03/18/17 History
== END ==
LOC: 3 N SLEEP 10:21
PROVIDERS: ATTEND Internal Medicine
DX: G47.33 Obstructive sleep apnea (adult) (pediatric) (principal); E66.9 Obesity, unspecified; E78.5 Hyperlipidemia, unspecified; K21.9 Gastro-esophageal reflux disease without esophagitis; Z68.35 Body mass index [BMI] 35.0-35.9, adult; Z88.5 Allergy status to narcotic agent; Z88.8 Allergy status to other drugs, medicaments and biological substances; Z87.891 Personal history of nicotine dependence; Z87.310 Personal history of (healed) osteoporosis fracture
CPT/HCPCS: 99212

== ENCOUNTER → 2024-04-12 | Outpatient (CLI) | payer MEDICARE ==
[2024-04-12 10:55] LABS: African American GFR (CKD) >90 (>60 ml/min/1.73 sqM); Blood Urea Nitrogen 18 mg/dL (9-20); Non-African American GFR(CKD) >90 (>60 ml/min/1.73 sqM)
--- NOTE | 2024-04-14 22:46 | CT ---
EXAMINATION TYPE: CT soft tissue neck w con DATE OF EXAM: 04/12/2024 11:16 AM COMPARISON: None. CLINICAL INDICATION: Male, 68 years old with history of R22.1 LOCALIZED SWELLING, MASS AND LUMP, NECK , Neck mass/lump. BB placed on ALEXANDER. TECHNIQUE: Axial images at 3 mm thick sections. Reconstructed images in the coronal plane and sagitt al plane are reviewed. Contrast used:100ml mL of Isovue 300 with IV Contrast, (none if empty) Oral contrast used: (none if empty) CT DLP: 771 mGycm, Automated exposure control for dose reduction was used. FINDINGS: Limited CT sections are obtained the lung apices. The lung apices appear clear. CT neck: The torus tubarius and fossa of Rosenmuller are normal. Director Sports spaces are normal. Para nasal sinuses and mastoid air cells are clear. Parotid glands appear normal and symmetrical. Submandibular glands, are normal. Parapharyngeal spac es are normal. No suspicious adenopathy is evident. The hypopharynx appears within normal limits. Vocal cord level appear symmetrical. Thyroid as visualized is normal. Osseous structures are normal. At the level marked by the median the right neck, there is subcutaneous fat. This is subtly asymmetri c. Lipoma may be at this level. IMPRESSION: 1. No suspicious abnormality at the level marked for the region of interest. Underlying lipoma is not excluded [facility], , 04/14/2024 10:44 PM
== END | disposition home or self-care (01) ==
LOC: RADCTMAIN 09:20
PROVIDERS: ATTEND Family Medicine
DX: R22.1 Localized swelling, mass and lump, neck (principal)
CPT/HCPCS: 82565; 84520; 70491; 36415; Q9967

== ENCOUNTER 2024-08-13 05:55 | Day surgery (SDC) | payer MEDICARE ==
[2024-08-10 11:41] VITALS: BMI 36.6
[2024-08-13] MEDS: LACTATED RINGERS 1,000 ML IV SCH (06:59)
[2024-08-13] MEDS: IV FLUID CONTINUATION 1,000 ML IV ONE (07:00)
[2024-08-13] MEDS ORDERED: fentaNYL (PF) 50 MCG/ML 2 ML AMP IV PRN (07:00)
[2024-08-13] MEDS: DEXAMETHASONE SOD PHOSPHATE 4 MG/ML 1 ML VIAL IV ONE (07:02)
[2024-08-13] MEDS: ONDANSETRON 4 MG/2 ML VIAL IVP ONE (07:02)
[2024-08-13] MEDS: HEPARIN SODIUM,PORCINE 5,000 UNIT/ML 1 ML VIAL SQ PRN (07:02)
[2024-08-13] MEDS: ACETAMINOPHEN TAB 500 MG TAB PO PRN (07:02)
[2024-08-13 07:12] VITALS: RESP 16
[2024-08-13] MEDS ORDERED: SUCCINYLCHOLINE CHLORIDE 200 MG/10 ML VIAL IV ONE (07:25)
[2024-08-13] MEDS ORDERED: PROPOFOL 10 MG/ML 20 ML VIAL IV ONE (07:25)
[2024-08-13] MEDS ORDERED: LIDOCAINE 1% INJ 10MG/ML (20 ML MDV) ONE (07:25)
[2024-08-13] MEDS ORDERED: fentaNYL (PF) 50 MCG/ML 2 ML AMP ONE (07:25)
[2024-08-13] MEDS ORDERED: MIDAZOLAM 2 MG/2 ML VIAL ONE (07:25)
--- NOTE | 2024-08-13 07:31 | P.HPADDEND ---
H&P Addendum H&P Addendum Date: 08/13/24 Patient's CAT scan was reviewed after his recent office visit. Spoke with the patient by phone following that. Will proceed with surgical excision.
[2024-08-13] MEDS: BUPIVACAINE (PF) 0.25% 10 ML VIAL SQ ONE (08:13)
[2024-08-13] MEDS: LACTATED RINGERS 1,000 ML IV ONE (08:17)
[2024-08-13] MEDS ORDERED: NALOXONE 0.4 MG/ML 1 ML VIAL IV PRN (08:23)
--- NOTE | 2024-08-13 08:30 | P.OP ---
Date of Procedure: 08/13/24 Procedure(s) Performed: PREOPERATIVE DIAGNOSIS: Right neck lipomatous mass POSTOPERATIVE DIAGNOSIS: Same PROCEDURE: Excision right neck lipoma with intermediate closure SURGEON: Abdulaziz EBL: 5 cc ANESTHESIA: General COMPLICATIONS: None OPERATIVE PROCEDURE: Patient placed in the supine position. Right neck was prepped and draped sterilely. Small oblique incision was made overlying the palpable mass right upper posterior neck. This was anterior to the sternocleidomastoid. The platysma was divided using electrocautery. The patient's lipomatous mass was then soon seen. This was able to be dissected using a combination of blunt dissection and cautery. This appeared to be fully excised. This measures 6 x 2.5 x 2.5 cm. This was sent to pathology. Area was irrigated. No bleeding was seen. Subcutaneous layers closed using interrupted 3-0 Vicryl sutures. Skin closed using a running 4-0 Monocryl subcuticular stitch. Length of intermediate closure 4.5 cm. Skin glue and sterile dressings applied. DISPOSITION: Stable to recovery room
[2024-08-13 08:46] VITALS: TEMP 96.8
[2024-08-13 09:34] VITALS: BP 144/79; PULSE 62
== END 2024-08-13 09:45 | disposition home or self-care (01) ==
LOC: OR 05:55
PROVIDERS: ATTEND Surgery
DX: D17.0 Benign lipomatous neoplasm of skin and subcutaneous tissue of head, face and neck (principal); I10 Essential (primary) hypertension; G47.33 Obstructive sleep apnea (adult) (pediatric); J45.909 Unspecified asthma, uncomplicated; E78.5 Hyperlipidemia, unspecified; K51.90 Ulcerative colitis, unspecified, without complications; Z79.899 Other long term (current) drug therapy; Z90.89 Acquired absence of other organs; Z98.890 Other specified postprocedural states
CPT/HCPCS: 88304; 21552; J2250; J0330; J1644; J1100; J0690; J2405; J2003; J3010; J2704; J0665; 88305